=== PATIENT | female | born 1970 | race Caucasian/White ===

== ENCOUNTER 2018-03-13 15:40 | Inpatient (IN) | payer OTHER ==
[2018-03-13 16:52] LABS: ADD MAN DIFF? NO
[2018-03-13] MEDS: SOD CHLORIDE 0.9% 1,000 ML IV (16:54)
[2018-03-13] MEDS: LIDOCAINE/MYLANTA 40 ML BTL PO (16:55)
[2018-03-13] MEDS: PANTOPRAZOLE 40 MG INJ IV (16:55)
[2018-03-13] MEDS: BELLADONNA/PHENOBARBITAL TAB PO (16:55)
[2018-03-13] MEDS: FAMOTIDINE 20 MG INJ IV (16:55)
[2018-03-13] MEDS: ONDANSETRON 4 MG INJ IV (16:55)
[2018-03-13 16:58] LABS: BASOPHILS % 0.4 % (0.0-2.0); EOSINOPHILS # 0.2 10^3/ul (0.0-0.5); EOSINOPHILS % 2.2 % (0.0-7.0); HEMOGLOBIN 13.3 g/dl (12.0-16.0); LYMPHOCYTES # 3.1 10^3/ul (0.8-2.9); LYMPHOCYTES % 37.4 % (15.0-51.0); MEAN CORPUSCULAR HEMOGLOBIN 29.2 pg (29.0-33.0); MEAN CORPUSCULAR HGB CONC 34.1 g/dl (32.0-37.0); MEAN CORPUSCULAR VOLUME 85.5 fl (82.0-101.0); MEAN PLATELET VOLUME 10.1 fl (7.4-10.4); MONOCYTE # 0.7 10^3/ul (0.3-0.9); MONOCYTES % 8.8 % (0.0-11.0); NEUTROPHIL # 4.1 10^3/ul (1.6-7.5); NEUTROPHILS % 50.8 % (39.0-77.0); PLATELET COUNT 282 10^3/UL (140-415); RED BLOOD COUNT 4.56 10^6/ul (4.20-5.40); RED CELL DISTRIBUTION WIDTH 13.5 % (11.5-14.5)
[2018-03-13 16:58] LABS: WHITE BLOOD COUNT 8.2 10^3/ul (4.8-10.8)
[2018-03-13 17:17] LABS: ALANINE AMINOTRANSFERASE 22 IU/L (13-69); ALBUMIN 3.6 g/dl (3.3-4.9); ALBUMIN/GLOBULIN RATIO 0.92; ALKALINE PHOSPHATASE 68 IU/L (42-121); ANION GAP 12 (8-16); ASPARTATE AMINO TRANSFERASE 21 IU/L (15-46); BILIRUBIN,INDIRECT 0.2 mg/dl (0-1.1); BILIRUBIN,TOTAL 0.2 mg/dl (0.2-1.3); BLOOD UREA NITROGEN 14 mg/dl (7-20); CALCIUM 10.1 mg/dl (8.4-10.2); CARBON DIOXIDE 26 mmol/L (21-31); CHLORIDE 107 mmol/L (97-110); CREATININE 0.67 mg/dl (0.44-1.00); GLUCOSE 96 mg/dl (70-220); LIPASE 52 U/L (23-300); POTASSIUM 3.8 mmol/L (3.5-5.1); SODIUM 141 mmol/L (135-144); TOTAL PROTEIN 7.5 g/dl (6.1-8.1)
[2018-03-13 17:19] LABS: INR 0.87; PARTIAL THROMBOPLASTIN TIME 27.9 Sec (23.0-35.0); PROTIME 11.9 Sec (11.9-14.9); PT RATIO 0.9
[2018-03-13] MEDS ORDERED: ONDANSETRON 4 MG INJ IV (19:00)
[2018-03-13] MEDS ORDERED: BISACODYL 10 MG SUPP PR (19:00)
[2018-03-13] MEDS ORDERED: MAGNESIUM HYDROXIDE 30ML CUP PO (19:00)
[2018-03-13] MEDS ORDERED: NACL 0.9% 3 ML SYG IV (19:00)
[2018-03-13] MEDS ORDERED: DOCUSATE SODIUM 100 MG CAP PO (19:00)
[2018-03-13] MEDS: PANTOPRAZOLE IV 80 MG in SOD CHLORIDE 0.9% 100 ML IV (20:13)
[2018-03-13 23:02] LABS: HEMATOCRIT 37.4 % (37.0-47.0); HEMOGLOBIN 12.3 g/dl (12.0-16.0)
[2018-03-14] MEDS: ACETAMINOPHEN 325 MG TAB PO ×2 (00:19→22:52)
[2018-03-14] MEDS: PANTOPRAZOLE IV 80 MG in SOD CHLORIDE 0.9% 100 ML IV (05:53)
[2018-03-14] MEDS ORDERED: PROPOFOL 200 MG INJ (07:00)
[2018-03-14] MEDS ORDERED: LIDOCAINE 2% (SDV) 5 ML INJ (07:00)
[2018-03-14 08:50] LABS: ADD MAN DIFF? NO
[2018-03-14 08:54] LABS: WHITE BLOOD COUNT 7.2 10^3/ul (4.8-10.8)
[2018-03-14 08:54] LABS: BASOPHILS % 0.4 % (0.0-2.0); EOSINOPHILS # 0.2 10^3/ul (0.0-0.5); EOSINOPHILS % 2.2 % (0.0-7.0); HEMATOCRIT 38.6 % (37.0-47.0); HEMOGLOBIN 12.4 g/dl (12.0-16.0); LYMPHOCYTES # 3.1 10^3/ul (0.8-2.9); LYMPHOCYTES % 43.2 % (15.0-51.0); MEAN CORPUSCULAR HEMOGLOBIN 27.9 pg (29.0-33.0); MEAN CORPUSCULAR HGB CONC 32.1 g/dl (32.0-37.0); MEAN CORPUSCULAR VOLUME 86.7 fl (82.0-101.0); MEAN PLATELET VOLUME 10.4 fl (7.4-10.4); MONOCYTE # 0.7 10^3/ul (0.3-0.9); MONOCYTES % 9.8 % (0.0-11.0); NEUTROPHIL # 3.2 10^3/ul (1.6-7.5); NEUTROPHILS % 44.1 % (39.0-77.0); PLATELET COUNT 260 10^3/UL (140-415); RED BLOOD COUNT 4.45 10^6/ul (4.20-5.40); RED CELL DISTRIBUTION WIDTH 13.8 % (11.5-14.5)
[2018-03-14 09:20] LABS: ALANINE AMINOTRANSFERASE 26 IU/L (13-69); ALBUMIN 3.3 g/dl (3.3-4.9); ALBUMIN/GLOBULIN RATIO 0.94; ALKALINE PHOSPHATASE 61 IU/L (42-121); ANION GAP 11 (8-16); ASPARTATE AMINO TRANSFERASE 23 IU/L (15-46); BILIRUBIN,INDIRECT 0.6 mg/dl (0-1.1); BILIRUBIN,TOTAL 0.6 mg/dl (0.2-1.3); BLOOD UREA NITROGEN 12 mg/dl (7-20); CALCIUM 9.4 mg/dl (8.4-10.2); CARBON DIOXIDE 27 mmol/L (21-31); CHLORIDE 107 mmol/L (97-110); CREATININE 0.75 mg/dl (0.44-1.00); GLUCOSE 86 mg/dl (70-220); PHOSPHORUS 4.6 mg/dl (2.5-4.9); SODIUM 141 mmol/L (135-144); TOTAL PROTEIN 6.8 g/dl (6.1-8.1)
[2018-03-14] MEDS: METOCLOPRAMIDE 10 MG INJ IV ×3 (11:31→23:40)
[2018-03-14] MEDS: morphine 2 MG INJ IV (12:44)
[2018-03-14] MEDS: PROPOFOL 20 ML (12:50)
[2018-03-14] MEDS: PANTOPRAZOLE 40 MG INJ IV (18:18)
[2018-03-15] MEDS: METOCLOPRAMIDE 10 MG INJ IV (05:46)
[2018-03-15] MEDS: PANTOPRAZOLE 40 MG INJ IV (05:46)
[2018-03-15 06:02] LABS: ADD MAN DIFF? NO
[2018-03-15 06:07] LABS: BASOPHILS % 0.3 % (0.0-2.0); EOSINOPHILS # 0.2 10^3/ul (0.0-0.5); EOSINOPHILS % 2.4 % (0.0-7.0); HEMATOCRIT 37.6 % (37.0-47.0); HEMOGLOBIN 12.4 g/dl (12.0-16.0); LYMPHOCYTES # 2.9 10^3/ul (0.8-2.9); LYMPHOCYTES % 42.2 % (15.0-51.0); MEAN CORPUSCULAR HEMOGLOBIN 28.4 pg (29.0-33.0); MEAN CORPUSCULAR VOLUME 86.2 fl (82.0-101.0); MEAN PLATELET VOLUME 9.8 fl (7.4-10.4); MONOCYTE # 0.6 10^3/ul (0.3-0.9); MONOCYTES % 8.3 % (0.0-11.0); NEUTROPHIL # 3.2 10^3/ul (1.6-7.5); NEUTROPHILS % 46.5 % (39.0-77.0); PLATELET COUNT 271 10^3/UL (140-415); RED BLOOD COUNT 4.36 10^6/ul (4.20-5.40); RED CELL DISTRIBUTION WIDTH 13.5 % (11.5-14.5)
[2018-03-15] MEDS ORDERED: PANTOPRAZOLE (EC) 40 MG TAB PO (18:00)
== END 2018-03-15 10:55 | disposition home or self-care (01) | DRG 378 ==
LOC: E/R 15:40 → 2NE 17:26
PROC: 0DD68ZX Extraction of Stomach, Via Natural or Artificial Opening Endoscopic, Diagnostic (ICD-10-PCS; principal; 2018-03-14 11:20)
DX: K92.0 Hematemesis (principal); D62 Acute posthemorrhagic anemia; K92.2 Gastrointestinal hemorrhage, unspecified; K29.70 Gastritis, unspecified, without bleeding; M54.9 Dorsalgia, unspecified
CPT/HCPCS: 36415; 71045; 80053; 83690; 83735; 84100; 84703; 85014; 85018; 85025; 85610; 85730; 88305; 88312; 93005; 96374; 96375; 99285-25

== ENCOUNTER 2018-08-29 11:17 | Emergency (ER) | payer OTHER ==
[2018-08-29] MEDS: IBUPROFEN 800 MG TAB PO (13:05)
== END 2018-08-29 14:56 | disposition home or self-care (01) ==
LOC: E/R 11:17
DX: R20.0 Anesthesia of skin (principal); R51 Headache; R42 Dizziness and giddiness
CPT/HCPCS: 81025; 82962; 93005; 99283-25